=== PATIENT | female | born 1980 | race African-American/Black ===

== ENCOUNTER 2018-09-16 14:45 | Emergency (ER) | payer OTHER ==
[~2018-09-16] VITALS: Ht 157.5 cm; Wt 101.2 kg
[~2018-09-16 14:45] MED LIST: ACID CONTROL20 MG PO; APAP500; CLONAZEPAM; CLONAZEPAM 0.50.5 M1 PO; CLONAZEPAM 1 MG1 M1 PO; COLACE 100 MG100 MG PO; DERMOPLAST SPRA56 ML; DIPHENHYDRAMINE25 M3; EFFEXOR 5050 MG/1 T1 PO; EFFEXOR XR150 MG PO; EFFEXOR75 MG PO; FLAGYL500 MG PO; GLYBURIDE 2.52.5 M1 PO; HYDROCORTISONE; IBUPROFEN 800800 M1; IBUPROFEN 800800 M1 PO; IRON325 PO; K-DUR 20 MEQ T20 MEQ PO; KLONOPIN1 MG PO; LANOLIN56 GM; NEURONTIN300 MG PO; NOHOMEMEDICATIONS; NORCO 5-325 TA1 EACH PO; PENICILLIN VK250 MG PO; PHENERGAN 25 MG25 M1 PO; PRENATAL COMPL1 EACH; PROPRANOLOL 1010 M1 PO; REGLAN 10 MG TA10 MG PO; TUCKS MEDICATE1 EAC1; TUMS; VENLAFAXIN75 MG/1 T2 PO; VENLAFAXINE HC150 M1 PO; VENTOLIN HFA 1818 GM INH; ZOFRAN4 MG PO
[2018-09-16 15:35] LABS: URINE BILIRUBIN NEGATIVE (Negative); URINE BLOOD NEGATIVE (Negative); URINE CLARITY CLEAR; URINE COLOR YELLOW; URINE GLUCOSE-RANDOM* NEGATIVE (Negative); URINE KETONES 3+ (Negative); URINE LEUKOCYTES-REFLEX NEGATIVE (Negative); URINE NITRITE-REFLEX NEGATIVE (Negative); URINE PROTEIN (DIPSTICK) TRACE (Negative); URINE SPECIFIC GRAVITY >= 1.030 (1.005-1.035); URINE UROBILINOGEN 0.2 E.U./dl (0.2-1.0)
[2018-09-16 15:40] LABS: URINE REDUCING SUBSTANCE NEGATIVE
[2018-09-16 15:46] LABS: ABSOLUTE NEUTROPHILS 8.3 thou/uL (1.4-8.2); BASOPHILS 0.5 % (0.0-2.0); EOSINOPHILS 0.7 % (0.0-3.0); HEMATOCRIT 35.6 % (37.0-47.0); HEMOGLOBIN 11.5 gm/dL (12.0-15.0); LYMPHOCYTES 7.2 % (24.0-44.0); MCH 26.1 pg (26.0-34.0); MCHC 32.2 g/dL (28.0-37.0); MCV 81.2 fL (80.0-100.0); PLATELET COUNT 269 thou/uL (150-400); POLYS 87.6 % (36.0-66.0); RBC 4.39 mil/uL (4.20-5.00); RDW 15.7 % (10.5-14.5); WBC 9.5 thou/uL (4.0-11.0)
[2018-09-16 15:54] LABS: CALCIUM 9.9 mg/dL (8.5-10.1); CREATININE 0.7 mg/dL (0.6-1.0); POTASSIUM 3.8 mmol/L (3.5-5.1)
[2018-09-16 16:04] LABS: TOTAL BILIRUBIN 0.6 mg/dL (<0.1-1.0); TOTAL PROTEIN 7.7 g/dL (6.4-8.2)
[2018-09-16] MEDS ORDERED: EFFEXOR 5050 MG/1 T1 PO (16:06)
[2018-09-16 19:07] VITALS: BP 137/81
== END 2018-09-16 20:06 | disposition short-term general hospital (02) ==
LOC: ER 14:45
PROVIDERS: Nurse Practitioner Family
DX: O26.893 Other specified pregnancy related conditions, third trimester (principal); O21.8 Other vomiting complicating pregnancy; R00.0 Tachycardia, unspecified; R10.9 Unspecified abdominal pain; J45.909 Unspecified asthma, uncomplicated; F32.9 Major depressive disorder, single episode, unspecified; F41.9 Anxiety disorder, unspecified; Z3A.33 33 weeks gestation of pregnancy

== ENCOUNTER 2019-08-22 11:47 | Emergency (ER) | payer OTHER ==
[~2019-08-22] VITALS: Ht 157.5 cm; Wt 95.3 kg
[2019-08-22 11:49] VITALS: BP 140/70
[2019-08-22] MEDS ORDERED: XANAX1 MG PO (12:15)
[2019-08-22] MEDS ORDERED: FLEXERIL PO (12:15)
== END 2019-08-22 12:20 | disposition home or self-care (01) ==
LOC: ER 11:47
DX: F41.9 Anxiety disorder, unspecified (principal); Z76.0 Encounter for issue of repeat prescription; F32.9 Major depressive disorder, single episode, unspecified; Z79.899 Other long term (current) drug therapy

== ENCOUNTER 2020-08-28 21:54 | Inpatient (IN) | payer OTHER ==
[~2020-08-28] VITALS: Ht 157.5 cm; Wt 88.5 kg
[~2020-08-28 21:54] MED LIST changes: +FLEXERIL PO; +XANAX1 MG PO
[2020-08-28 21:55] VITALS: BP 128/81
[2020-08-28 22:10] LABS: ABSOLUTE NEUTROPHILS 16.7 thou/uL (1.4-8.2); BASOPHILS 0.3 % (0.0-2.0); EOSINOPHILS 0.1 % (0.0-3.0); HEMATOCRIT 37.2 % (37.0-47.0); HEMOGLOBIN 11.6 gm/dL (12.0-15.0); LYMPHOCYTES 6.5 % (24.0-44.0); MCH 25.7 pg (26.0-34.0); MCHC 31.2 g/dL (28.0-37.0); MCV 82.5 fL (80.0-100.0); MONOCYTES 3.2 % (1.0-8.0); PLATELET COUNT 288 thou/uL (150-400); POLYS 89.9 % (36.0-66.0); RBC 4.51 mil/uL (4.20-5.00); RDW 15.8 % (10.5-14.5); WBC 18.6 thou/uL (4.0-11.0)
[2020-08-28 22:20] LABS: ANION GAP 16 mmol/L (7-16); BUN 18 mg/dL (7-18); CALCIUM 8.2 mg/dL (8.5-10.1); CHLORIDE 99 mmol/L (98-107); CO2 21 mmol/L (21-32); CREATININE 1.5 mg/dL (0.6-1.0); GLUCOSE 231 mg/dL (74-106); POTASSIUM 4.5 mmol/L (3.5-5.1); SODIUM 136 mmol/L (136-145)
[2020-08-28 22:26] LABS: ALBUMIN 3.8 g/dL (3.4-5.0); DIRECT BILIRUBIN < 0.1 mg/dL (<0.1-0.2); SALICYLATE < 2.8 mg/dL (2.8-20.0); SGOT 909 U/L (15-37); SGPT 536 U/L (14-59); TOTAL BILIRUBIN 0.3 mg/dL (0.2-1.0)
[2020-08-28 23:06] LABS: AMP/METHAMP POSITIVE (Negative); BARBITURATES Negative (Negative); BENZODIAZEPINES Negative (Negative); COCAINE POSITIVE (Negative); METHADONE Negative (Negative); OPIATES Negative (Negative); PCP Negative (Negative)
--- NOTE | 2020-08-29 06:25 | NUR ---
ULTRASOUND AT BEDSIDE
[2020-08-29] MEDS ORDERED: PROZAC20 M1 PO (06:35)
[2020-08-29] MEDS ORDERED: CLONAZEPAM 0.50.5 M1 PO (06:35)
[2020-08-29 06:41] VITALS: BP 120/78
[2020-08-29 07:04] VITALS: BP 121/83
[2020-08-29 07:25] VITALS: BP 106/69
[2020-08-29 10:08] LABS: ALBUMIN 3.5 g/dL (3.4-5.0); DIRECT BILIRUBIN 0.1 mg/dL (<0.1-0.2); TOTAL BILIRUBIN 0.3 mg/dL (0.2-1.0); TOTAL PROTEIN 7.6 g/dL (6.4-8.2)
[2020-08-29 10:30] LABS: APTT 25.7 Seconds (24.5-32.8); INR 1.1; PROTIME 12.3 Seconds (9.3-11.4)
[2020-08-29 11:05] VITALS: BP 111/62
--- NOTE | 2020-08-29 11:30 | EKG ---
[place] [address] [facility] [place] [address] ELECTROCARDIOGRAM REPORT Name: MONTOYALORENZA Young Room #: 204-P ADM IN M.R.#: [id number] Admission: 08/29/20 Attend Phys: Bishnu Denise MD Discharge: Date of : 84 Report #: [id number] [facility] ED Test Date: 2020-08-29 Test Time: 00:09:39 Pat Name: LORENZA MONTOYA Department: Room: Formerly named [facility] Gender: F Ad Taker: pieter : 1980 Requested By: Brittany Dougherty Order Number: [id number] MD: Edy Garcia Measurements Intervals [place] Rate: 95 P: 32 NV: 131 QRS: 44 QRSD: 101 T: 5 QT: 395 QTc: 497 Interpretive Statements Sinus rhythm Probable left atrial enlargement Left ventricular hypertrophy Borderline prolonged QT interval Baseline wander in lead(s) V6 No previous ECG available for comparison Electronically Signed On 08-29-2020 11:30:46 CDT by Edy Garcia [email or web address] <ELECTRONICALLY SIGNED> By: Edy Garcia MD, [facility] 08/29/20 1130 0009 Edy Garcia MD, FAC /EPI
[2020-08-29 14:51] LABS: URINE BILIRUBIN NEGATIVE (Negative); URINE BLOOD 1+ (Negative); URINE CLARITY CLEAR; URINE COLOR YELLOW; URINE GLUCOSE-RANDOM* NEGATIVE (Negative); URINE KETONES NEGATIVE (Negative); URINE LEUKOCYTES-REFLEX TRACE (Negative); URINE NITRITE-REFLEX NEGATIVE (Negative); URINE PROTEIN (DIPSTICK) NEGATIVE (Negative); URINE UROBILINOGEN 0.2 E.U./dl (0.2-1.0)
[2020-08-29 14:59] LABS: SQUAMOUS 4-10 Moderate /LPF (0-3)
[2020-08-29 15:01] LABS: URINE WBC-REFLEX 0-5 Rare /HPF (0-5)
[2020-08-29 15:02] LABS: URINE RBC None Seen /HPF (0-2)
[2020-08-29 15:03] LABS: CASTS None Seen /LPF (None Seen); CRYSTALS None Seen /LPF (None Seen)
[2020-08-29 15:13] VITALS: BP 122/67
--- NOTE | 2020-08-29 17:29 | NUR ---
PT ADMITED FROM ER. ADMISSION HX AND ASSESSMENT COMPLETED. VSS. ON CIWA PROTOCAL. NEW ORDERS NOTED. SR/ST OM TELE. NO CONCERNS AT THIS TIME.
[2020-08-29 19:27] VITALS: BP 124/68
[2020-08-30 03:05] LABS: HAV IgM AB (ANTI-HAV IgM) Negative (Negative); HEPATITIS B SURFACE AG Negative (Negative); HEPATITIS C VIRUS AB <0.1 (0.0-0.9)
[2020-08-30 03:05] LABS: GLYCOHEMOGLOBIN (HGB A1C) 5.8 % (4.8-5.6)
[2020-08-30 03:17] LABS: ABSOLUTE NEUTROPHILS 9.2 thou/uL (1.4-8.2); BASOPHILS 0.7 % (0.0-2.0); EOSINOPHILS 3.9 % (0.0-3.0); HEMATOCRIT 33.3 % (37.0-47.0); HEMOGLOBIN 10.2 gm/dL (12.0-15.0); LYMPHOCYTES 16.3 % (24.0-44.0); MCHC 30.5 g/dL (28.0-37.0); MCV 81.9 fL (80.0-100.0); MONOCYTES 3.8 % (1.0-8.0); POLYS 75.3 % (36.0-66.0); RBC 4.07 mil/uL (4.20-5.00); RDW 15.8 % (10.5-14.5); WBC 12.2 thou/uL (4.0-11.0)
[2020-08-30 03:29] LABS: PLATELET COUNT 193 thou/uL (150-400)
[2020-08-30 03:32] LABS: ALBUMIN 2.9 g/dL (3.4-5.0); CALCIUM 8.2 mg/dL (8.5-10.1); CREATININE 0.8 mg/dL (0.6-1.0); POTASSIUM 3.7 mmol/L (3.5-5.1); TOTAL BILIRUBIN 0.2 mg/dL (0.2-1.0); TOTAL PROTEIN 6.5 g/dL (6.4-8.2)
--- NOTE | 2020-08-30 03:54 | NUR ---
A/O X 4.UP WITH ASSIST TO THE BATHROOM.UNSTEADY GAIT.BED ALARM ON.ATIVAN GIVEN.SPO2 LOW.PLACED ON O2 2L NC.MONITOR SHOWS SINUS TACHY.POC CONTINUED.
[2020-08-30 09:44] VITALS: BP 94/73
[2020-08-30 12:39] VITALS: BP 159/77
--- NOTE | 2020-08-30 15:55 | NUR ---
PT ALERT AND ORIENTED. ON CIWA PROTOCAL. PRN ANXIETY AND PAIN MED GIVEN ORDERED. SR/ST ON TELE. NO CONCERNS AT THIS TIME.
[2020-08-30 16:00] VITALS: BP 115/77
[2020-08-30 20:25] VITALS: BP 154/97
[2020-08-31 04:15] VITALS: BP 146/91
[2020-08-31 04:25] LABS: HEMATOCRIT 30.4 % (37.0-47.0); HEMOGLOBIN 9.7 gm/dL (12.0-15.0); MCH 25.7 pg (26.0-34.0); MCHC 31.8 g/dL (28.0-37.0); MCV 80.7 fL (80.0-100.0); RBC 3.77 mil/uL (4.20-5.00); RDW 15.9 % (10.5-14.5); WBC 9.4 thou/uL (4.0-11.0)
[2020-08-31 04:46] LABS: % SATURATION 9 % (20-39); IRON 23 ug/dL (50-170); TIBC 256 ug/dL (250-450)
[2020-08-31 04:57] LABS: ALBUMIN 2.7 g/dL (3.4-5.0); CALCIUM 8.2 mg/dL (8.5-10.1); CREATININE 0.7 mg/dL (0.6-1.0); MAGNESIUM 1.6 mg/dL (1.8-2.4); POTASSIUM 3.5 mmol/L (3.5-5.1); TOTAL BILIRUBIN 0.3 mg/dL (0.2-1.0); TOTAL PROTEIN 6.1 g/dL (6.4-8.2)
--- NOTE | 2020-08-31 06:06 | NUR ---
A/O X 4.UP WITH ASSIST TO THE BATHROOM.IV FLUIDS INFUSING.IBUPROFEN GIVEN FOR PAIN.MONITOR SHOWS SR.POC CONTINUED.
[2020-08-31 07:30] VITALS: BP 149/88
[2020-08-31 11:45] VITALS: BP 125/76
--- NOTE | 2020-08-31 13:51 | NUR ---
ASSESSMENT: CM REVIEWED CHART AND MET WITH PATIENT. PT IS ALERT AND ORIENTED X4. PT WAS ADMITTED AFTER ACCIDENTAL OVERDOSE. PT WAS FOUND UNRESPONSIVE AT HOME AND EMS WAS CALLED. PT REPORTS TAKING PERCOCET TO HELP WITH HEADACHE AND HAD ALSO USED COCAINE. PT DENIED SI ATTEMPT. PSYCH IS ON THE CASE AND HAS CLEARED PATIENT AND ENCOURAGED TO FOLLOW UP WITH HER OUTPATIENT PSYCHIATRIST DR. LAUREANO. PT REPORTS THAT SHE LIVES WITH HER MOTHER AND STEPFATHER IN A HOUSE AND HER CHILDREN. PT HAS A COUPLE STEPS TO ENTER AND FLIGHT WITH HANDRAIL TO BEDROOM. PT REPORTS BEING INDEPENDENT WITH ADLS AND AMBULATION. CM DISCUSSED ROLE AND OFFERED OUTPATIENT RESOURCES AND PT DENIES THE NEED FOR THIS. PT REPORTS THAT HER PCP IS OUT OF THE [facility]. PHYSICAL THERAPY WORKED WITH PATIENT AND POSSIBLE NEED FOR A WALKER AT DISCHARGE HOWEVER PT REPORTED HER PAIN WAS IMPROVING SO WILL CONTINUE TO FOLLOW TO ASSESS IF SHE NEEDS AT TIME OF DISCHARGE.
[2020-08-31 16:00] VITALS: BP 131/81
[2020-08-31 18:07] VITALS: BP 142/88
[2020-08-31 20:00] VITALS: BP 148/97
--- NOTE | 2020-08-31 20:09 | NUR ---
Pt transferred from at 1755; transferred to bed safely. Pt drowsy but rousable. On MS, not on telemetry; no complains and signs of chest pain, crushing sensation and heaviness. Assisted in ADLs. On carb controlled diet- tolerating dinner well; no nausea, no vomiting and no abdominal pain noted. On blood sugar monitoring- taken and recorded accordingly. A/w stool sample for occult blood. Continent of bowel and bladder- assisted in going to the toilet with standby assist. With SL at R FA- intact. Falls bundle in place. To continue monitoring patient.
--- NOTE | 2020-09-01 04:06 | NUR ---
UP WITH STANDBY ASSIST.IBUPROFEN GIVEN FOR LEFT HIP PAIN.DENIES NEEDS AT THIS TIME.POC CONTINUED.
[2020-09-01 05:37] LABS: ALBUMIN 2.7 g/dL (3.4-5.0); CALCIUM 8.5 mg/dL (8.5-10.1); CREATININE 0.7 mg/dL (0.6-1.0); POTASSIUM 3.8 mmol/L (3.5-5.1); TOTAL BILIRUBIN 0.5 mg/dL (0.2-1.0); TOTAL PROTEIN 6.2 g/dL (6.4-8.2)
[2020-09-01 08:22] VITALS: BP 139/95
[2020-09-01] MEDS ORDERED: FLAGYL500 M1 PO (08:58)
[2020-09-01 10:39] VITALS: BP 139/95
[2020-09-01 10:44] VITALS: BP 139/95
[2020-09-01 12:26] VITALS: BP 139/95
--- NOTE | 2020-09-01 15:08 | NUR ---
PT A&OX4, VSS, PAIN LEFT HIP. PREVIOUS IMAGING ON HIP NEGATIVE, PAIN MEDICATION GIVEN. PATIENT DISCHARGED HOME AND VERBALIZED UNDERSTANDING OF DISHARGE. PATIENT DISCHARGE HOME. PATIENT DID NOT BRING CLOTHING, HAS CELL PHONE. IV REMOVED AND NO SIGNS OF DISTRESS. PATIENT GIVEN CAB VOUCHER.
--- NOTE | 2020-09-01 15:12 | NUR ---
CARE TEAM INDICATED THAT PT IS MEDICALLY STABLE TO DC HOME THIS DAY. PT INDICATED PT NEEDED FWW FOR HOME USE UPON DC. CM ORDERED FWW THROUGH [facility] AND IT WAS DELIVERED TO PT'S ROOM. PT INDICATED SHE NEEDED A CAB VOUCHER HOME THIS DAY. ON WAS PROVIDED. PT DISCHRGED HOME THIS DAY TO SELF CARE. NO OTHER CM INTERVENTION INIDCATED. CASE CLOSED.
== END 2020-09-01 14:31 | disposition home or self-care (01) | DRG 917 ==
LOC: ER 21:54 → EROBS 08-29 01:10 → 2N 08-29 01:10 → 4W 08-31 17:47
PROVIDERS: Emergency Medicine; Hospitalist; Nurse Practitioner Acute Care; ADMIT Internal Medicine; ATTEND Internal Medicine
PROC: 5A0935A Assistance with Respiratory Ventilation, Less than 24 Consecutive Hours, High Flow/Velocity Cannula (ICD-10-PCS; principal; 2020-08-29)
DX: T40.601A Poisoning by unspecified narcotics, accidental (unintentional), initial encounter (principal); G93.41 Metabolic encephalopathy; J45.909 Unspecified asthma, uncomplicated; F32.9 Major depressive disorder, single episode, unspecified; F41.9 Anxiety disorder, unspecified; N76.0 Acute vaginitis; R74.01 Elevation of levels of liver transaminase levels; E11.9 Type 2 diabetes mellitus without complications; F14.90 Cocaine use, unspecified, uncomplicated; K75.89 Other specified inflammatory liver diseases; F19.10 Other psychoactive substance abuse, uncomplicated; D64.9 Anemia, unspecified; A56.8 Sexually transmitted chlamydial infection of other sites; F39 Unspecified mood [affective] disorder; Z91.14 Patient's other noncompliance with medication regimen; Y92.89 Other specified places as the place of occurrence of the external cause; Z87.891 Personal history of nicotine dependence; Z79.899 Other long term (current) drug therapy; Z23 Encounter for immunization
CPT/HCPCS: 10045; 10047; 10081

== ENCOUNTER 2020-09-25 07:23 | Emergency (ER) | payer OTHER ==
[~2020-09-25] VITALS: Ht 157.5 cm; Wt 86.2 kg
[~2020-09-25 07:23] MED LIST changes: +FLAGYL500 M1 PO; +PROZAC20 M1 PO
[2020-09-25] MEDS ORDERED: TYLENOL325 M1 PO (08:46)
[2020-09-25] MEDS ORDERED: FLONASE 0.05%50 MCG NARES (08:46)
[2020-09-25] MEDS ORDERED: DOXYCYCLINE 10100 MG PO (08:46)
[2020-09-25] MEDS ORDERED: NAPROSYN500 MG PO (08:46)
[2020-09-25 08:49] VITALS: BP 138/84
== END 2020-09-25 08:59 | disposition home or self-care (01) ==
LOC: ER 07:23
DX: R09.81 Nasal congestion (principal); J01.00 Acute maxillary sinusitis, unspecified; F14.10 Cocaine abuse, uncomplicated; J45.909 Unspecified asthma, uncomplicated; E11.9 Type 2 diabetes mellitus without complications; Z79.899 Other long term (current) drug therapy

== ENCOUNTER 2020-09-26 23:48 | Emergency (ER) | payer OTHER ==
[~2020-09-26] VITALS: Ht 157.5 cm; Wt 86.2 kg
[~2020-09-26 23:48] MED LIST changes: +DOXYCYCLINE 10100 MG PO; +FLONASE 0.05%50 MCG NARES; +NAPROSYN500 MG PO; +TYLENOL325 M1 PO
[2020-09-27 00:18] LABS: ABSOLUTE NEUTROPHILS 10.2 thou/uL (1.4-8.2); BASOPHILS 0.8 % (0.0-2.0); EOSINOPHILS 6.8 % (0.0-3.0); HEMATOCRIT 34.9 % (37.0-47.0); HEMOGLOBIN 11.2 gm/dL (12.0-15.0); LYMPHOCYTES 14.6 % (24.0-44.0); MCH 26.5 pg (26.0-34.0); MCV 82.8 fL (80.0-100.0); MONOCYTES 5.6 % (1.0-8.0); PLATELET COUNT 312 thou/uL (150-400); POLYS 72.2 % (36.0-66.0); RBC 4.21 mil/uL (4.20-5.00); RDW 17.3 % (10.5-14.5); WBC 14.2 thou/uL (4.0-11.0)
[2020-09-27 00:38] LABS: CALCIUM 9.2 mg/dL (8.5-10.1); CREATININE 0.8 mg/dL (0.6-1.0); POTASSIUM 3.5 mmol/L (3.5-5.1)
[2020-09-27 00:44] LABS: ALBUMIN 3.9 g/dL (3.4-5.0); TOTAL BILIRUBIN 0.6 mg/dL (0.2-1.0); TOTAL PROTEIN 7.9 g/dL (6.4-8.2)
[2020-09-27] MEDS ORDERED: PHENERGAN 25 MG25 M1 PO (01:43)
[2020-09-27 02:03] VITALS: BP 145/92
== END 2020-09-27 02:03 | disposition home or self-care (01) ==
LOC: ER 23:48
PROVIDERS: Emergency Medicine
DX: O99.511 Diseases of the respiratory system complicating pregnancy, first trimester (principal); J32.0 Chronic maxillary sinusitis; J32.1 Chronic frontal sinusitis; O99.321 Drug use complicating pregnancy, first trimester; F14.10 Cocaine abuse, uncomplicated; O26.891 Other specified pregnancy related conditions, first trimester; R51.9 Headache, unspecified; Z3A.01 Less than 8 weeks gestation of pregnancy